=== PATIENT | male | born 1960 | race Caucasian/White ===

== ENCOUNTER 2025-10-31 08:43 | Emergency (ER) | payer OTHER, MEDICAID ==
[~2025-10-31] VITALS: Ht 170.2 cm; Wt 75.0 kg
[~2025-10-31 08:43] MED LIST: AMLO10TA80 PO; HYDR100T11 PO; INSU100I24 SQ; KEPP500 MT; LOSA-415 PO
[2025-10-31 08:46] VITALS: O2SAT 99
[2025-10-31 09:15] LABS: HEMATOCRIT. 39.9 % (42.0-52.0); HEMOGLOBIN. 13.3 g/dL (14.0-18.0); MEAN PLATELET VOLUME 10.2 fl (7.4-10.4); PLATELET 157 x1000/uL (130-400); RED BLOOD CELL COUNT 4.34 mill/uL (4.7-6.1); RED CELL DISTRIBUTION WIDTH 13.3 % (11.6-14.6)
[2025-10-31 09:36] LABS: CREATININE 1.2 mg/dL (0.6-1.3)
[2025-10-31 09:37] LABS: PROTEIN TOTAL 6.7 g/dL (6.0-8.3); UREA NITROGEN BLOOD 20 mg/dL (9-23)
[2025-10-31 09:38] LABS: ASPARTATE AMINOTRANSFERASE 42 IU/L (<34)
[2025-10-31 09:39] LABS: BILIRUBIN DIRECT 1.9 mg/dL (<=3.0); BILIRUBIN TOTAL 2.7 mg/dL (0.1-1.0)
[2025-10-31] MEDS: MORPHINE SULFATE 4 MG/ML INJ (FOR IV/IM USE) IV ONE (09:45)
[2025-10-31] MEDS: ONDANSETRON HCL 4MG/2ML INJ IV ONE (09:45)
[2025-10-31] MEDS: SODIUM CHLORIDE 0.9% 1,000 ML IV ONE ×2 (09:46→12:39)
[2025-10-31] MEDS: CEFTRIAXONE 1GM/50ML 50 ML IV ONE (10:15)
[2025-10-31] MEDS: POTASSIUM CHLORIDE 20MEQ/PACKET PO ONE (10:30)
[2025-10-31] MEDS: LEVOFLOXACIN 750MG PREMIX 150 ML IV ONE (10:30)
[2025-10-31 11:16] LABS: BAND% 12.0 % (1.0-6.0); LYMPHOCYTES % MANUAL 4.0 % (20.0-50.0); MONOCYTES % MANUAL 2.0 % (2.0-8.0); NEUTROPHILS % MANUAL 82.0 % (45.0-75.0)
[2025-10-31 11:18] LABS: PLATELET ESTIMATE NORMAL
[2025-10-31 21:39] LABS: CLARITY URINE CLEAR (CLEAR); COLOR URINE DARK YELLOW (YELLOW); GLUCOSE URINE 3+ (NEGATIVE); KETONES URINE TRACE (NEGATIVE); LEUKOCYTE ESTERASE URINE 1+ (NEGATIVE); NITRITE URINE NEGATIVE (NEGATIVE); OCCULT BLOOD URINE NEGATIVE (NEGATIVE); PH URINE 5.5 (4.5-8.0); PROTEIN URINE 1+ (NEGATIVE); SPECIFIC GRAVITY URINE 1.031 (1.005-1.030); UROBILINOGEN URINE 2.0 E.U./dL (0.2-1.0)
[2025-10-31 22:04] LABS: BACTERIA URINE TRACE; RBC URINE NONE SEEN /hpf (0-2); SQUAMOUS EPITHELIAL CELL URINE RARE /lpf (RARE/1+)
[2025-11-01 10:31] VITALS: BP 117/65; PULSE 88; RESP 12; TEMP 36.7; O2SAT 96
[2025-11-01] MEDS: DEXTROSE 50% WATER 50ML SYRINGE IV ONE (10:47)
== END 2025-11-01 10:47 | disposition short-term general hospital (02) ==
LOC: ER 08:43 → CANBEDREQ 11-01 08:10 → ER 11-01 10:47
DX: K80.42 Calculus of bile duct with acute cholecystitis without obstruction (principal); E11.65 Type 2 diabetes mellitus with hyperglycemia; I10 Essential (primary) hypertension; Z79.899 Other long term (current) drug therapy; Z79.4 Long term (current) use of insulin; Z88.6 Allergy status to analgesic agent
CPT/HCPCS: 99285; 74176; 74181; 96365; 76705; 96375 ×2; 96361; 96366; 80076; 80048; 81003; 83605; 83690; 85025; 87040; 87086; 87077; 36415; 84145; 96368; 82962; 93005; J0696; J2405; J2270; J1956; J7030